=== PATIENT | female | born 1955 | race Caucasian/White ===

== ENCOUNTER 2017-07-09 19:48 | Emergency (ER) | payer OTHER, BC ==
[2017-07-09 19:55] VITALS: PULSE 82; TEMP 97.7; O2SAT 95
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
[2017-07-09] MEDS ORDERED: IBUPROFEN 800 MG TAB PO ONE (20:04)
[2017-07-09 21:34] VITALS: BP 150/100; RESP 13
== END 2017-07-09 21:32 | disposition home or self-care (01) ==
DX: S20.219A Contusion of unspecified front wall of thorax, initial encounter (principal); Z85.850 Personal history of malignant neoplasm of thyroid; V49.40XA Driver injured in collision with unspecified motor vehicles in traffic accident, initial encounter; Y92.410 Unspecified street and highway as the place of occurrence of the external cause; Y99.8 Other external cause status; Y93.89 Activity, other specified

== ENCOUNTER → 2017-07-27 | Outpatient (CLI) | payer BC, OTHER | LOC: FIMAGING 07:30 | PROVIDERS: ATTEND Internal Medicine Endocrinology, Diabetes & Metabolism | DX: Z08 Encounter for follow-up examination after completed treatment for malignant neoplasm (principal); Z85.850 Personal history of malignant neoplasm of thyroid ==

== ENCOUNTER → 2017-08-18 | Outpatient (CLI) | payer BC, OTHER | LOC: FIMAGING 11:56 | PROVIDERS: ATTEND Family Medicine | DX: Z12.31 Encounter for screening mammogram for malignant neoplasm of breast (principal) ==